=== PATIENT | male | born 1985 | race Caucasian/White ===

== ENCOUNTER 2021-08-29 00:27 | Inpatient (IN) | payer BC ==
[~2021-08-29] VITALS: Ht 182.9 cm; Wt 90.7 kg
--- NOTE | 2021-08-29 00:40 | NUR ---
BIBS. POSTERIOR HEAD LACERATION. PT WAKE UP ON THE FLOOR BLOODY DOES NOT REMEMBER FALLING ON THE FLOOR. PATIENT SUSTAINED 7.5 CM LACERATION. PLACED COMFORTABLY IN BED. VITALS CHECKED. PATIENT IS [id number].
--- NOTE | 2021-08-29 00:45 | NUR ---
SEEN BY DR ISBELL AT BEDSIDE
--- NOTE | 2021-08-29 00:57 | NUR ---
SKIN PREP DONE.
--- NOTE | 2021-08-29 01:15 | NUR ---
EMT AT BEDSIDE FOR EKG
--- NOTE | 2021-08-29 01:15 | NUR ---
XRAY AT BEDSIDE
--- NOTE | 2021-08-29 01:17 | NUR ---
BS 130
--- NOTE | 2021-08-29 01:24 | NUR ---
SUKHJINDER PAGED TO TAKE PT
--- NOTE | 2021-08-29 01:25 | NUR ---
Levar jauregui in [facility] - 08/29/21 at 0129 by ROXI PATIENT GOING TO CT
--- NOTE | 2021-08-29 01:25 | NUR ---
WITNESSED 5 SECOND SEIZURE NOTED.
--- NOTE | 2021-08-29 01:27 | NUR ---
PATIENT GOING TO CT.
--- NOTE | 2021-08-29 01:28 | NUR ---
COVID SWAB DONE AND SENT TO LAB
[2021-08-29 01:40] LABS: BASOPHILS % (AUTO) 0.3 % (0.0-2.0); EOSINOPHILS % (AUTO) 1.5 % (0.0-6.0); HEMATOCRIT 39 % (39-51); HEMOGLOBIN 13.3 g/dL (13.5-17.5); LYMPHOCYTES # (AUTO) 1.8 K/uL (0.8-4.8); LYMPHOCYTES % (AUTO) 20.3 % (20.0-44.0); MEAN CORPUSCULAR HGB CONC 34 g/dl (31.0-36.0); MEAN CORPUSCULAR VOLUME 91 fL (80-96); MONOCYTES # (AUTO) 0.8 K/uL (0.1-1.30); MONOCYTES % (AUTO) 9.1 % (2.0-12.0); NEUTROPHILS % (AUTO) 68.8 % (43.0-81.0); PLATELET COUNT (AUTO) 201 K/uL (150-450); RED BLOOD CELL COUNT(AUTO) 4.28 MIL/uL (4.5-6.0); WHITE BLOOD COUNT (AUTO) 8.6 K/uL (4.3-11.0)
[2021-08-29] MEDS ORDERED: LIDOCAINE 0.5%-EPI 1:200,000 50 ML VIAL ONE (01:56)
[2021-08-29 01:59] LABS: ALANINE AMINOTRANSFERASE 39 U/L (12-78); ALBUMIN 4.7 g/dL (3.4-5.0); ALKALINE PHOSPHATASE 69 U/L (46-116); ASPARTATE AMINOTRANSFERASE 42 U/L (15-37); BILIRUBIN,DIRECT 0.3 mg/dL (0.0-0.2); BILIRUBIN,TOTAL 1.9 mg/dL (0.2-1.0); CALCIUM, SERUM 9.1 mg/dL (8.5-10.1); CARBON DIOXIDE 27 mmol/L (21-32); CHLORIDE 102 mmol/L (98-107); CREATININE 1.3 mg/dL (0.6-1.3); GLUCOSE 118 mg/dL (74-106); POTASSIUM 2.9 mmol/L (3.5-5.1); SODIUM SERUM 139 mmol/L (136-145); TOTAL PROTEIN, SERUM 7.9 g/dL (6.4-8.2); UREA NITROGEN, BLOOD 16 mg/dL (7-18)
--- NOTE | 2021-08-29 02:00 | NUR ---
6 AUDREY APPLIED TO THE LACERATED WOUND. PRESSURE DRESSING DONE.
--- NOTE | 2021-08-29 02:26 | NUR ---
SPOKE WITH GONZALEZ, GRINDER DRESSER FOR CLINICALS. MD TO WITH DR. MCADAMS @ [phone]
[2021-08-29] MEDS ORDERED: MAGNESIUM HYDROXIDE 30 ML UDC PO PRN (03:00)
[2021-08-29] MEDS ORDERED: Z GUARD REMEDY 4 OZ OINT TP PRN (03:00)
[2021-08-29] MEDS ORDERED: POTASSIUM CHLORIDE 20 MEQ TAB.PRT.SR PO ONE ×5 (03:00→09:09)
[2021-08-29] MEDS ORDERED: MAG HYDROX/AL HYDROX/SIMETH 30 ML UDC PO PRN (03:00)
[2021-08-29] MEDS ORDERED: ACETAMINOPHEN 325 MG TABLET PO PRN (03:00)
[2021-08-29] MEDS ORDERED: POTASSIUM CHLORIDE 10 MEQ TABLET.SA ONE (06:36)
[2021-08-29 06:48] LABS: BASOPHILS % (AUTO) 0.3 % (0.0-2.0); EOSINOPHILS % (AUTO) 0.6 % (0.0-6.0); HEMATOCRIT 38 % (39-51); HEMOGLOBIN 13.1 g/dL (13.5-17.5); LYMPHOCYTES # (AUTO) 1.8 K/uL (0.8-4.8); LYMPHOCYTES % (AUTO) 21.4 % (20.0-44.0); MEAN CORPUSCULAR HGB CONC 35 g/dl (31.0-36.0); MEAN CORPUSCULAR VOLUME 92 fL (80-96); MONOCYTES # (AUTO) 0.6 K/uL (0.1-1.30); MONOCYTES % (AUTO) 6.9 % (2.0-12.0); NEUTROPHILS # (AUTO) 5.9 K/uL (1.8-8.9); NEUTROPHILS % (AUTO) 70.8 % (43.0-81.0); PLATELET COUNT (AUTO) 194 K/uL (150-450); RED BLOOD CELL COUNT(AUTO) 4.09 MIL/uL (4.5-6.0); WHITE BLOOD COUNT (AUTO) 8.3 K/uL (4.3-11.0)
[2021-08-29 07:00] LABS: ALBUMIN 4.3 g/dL (3.4-5.0); BILIRUBIN,TOTAL 1.6 mg/dL (0.2-1.0); CALCIUM, SERUM 8.9 mg/dL (8.5-10.1); CREATININE 1.1 mg/dL (0.6-1.3); MAGNESIUM 2.2 mg/dL (1.8-2.4); POTASSIUM 3.3 mmol/L (3.5-5.1); TOTAL PROTEIN, SERUM 7.3 g/dL (6.4-8.2)
--- NOTE | 2021-08-29 07:20 | NUR ---
REPORT GIVEN TO NTAHEN RUDOLPH
--- NOTE | 2021-08-29 07:20 | NUR ---
RECIVED PT FROM NII RN PT AWAKE AND FALLOW COMMNED C/O HEADEACH DUE TO DRESSING TO TITED AND VOMITING X1 REMOVE DRESSING DONE NO ACTIVE BLEEDING ON STABLE SITE BACK OF HEAD NO WEEKNESS DR. CARRERA NOTEFY ZOFRAN 4MG IVP GIVEN
[2021-08-29] MEDS ORDERED: PANTOPRAZOLE 40 MG TABLET.DR PO SCH (07:30)
[2021-08-29] MEDS ORDERED: ONDANSETRON HCL/PF 4 MG/2 ML VIAL ONE (07:39)
[2021-08-29] MEDS: IV NS 0.9% 1,000 ML IV PRN ×2 (07:45→12:06)
[2021-08-29] MEDS: ONDANSETRON HCL/PF 4 MG/2 ML VIAL IVP PRN ×2 (07:45→08:30)
--- NOTE | 2021-08-29 08:00 | NUR ---
RESTING AND ASLEEPY NOW
[2021-08-29] MEDS: POTASSIUM CHLORIDE 20 MEQ TAB.PRT.SR PO SCH ×3 (08:05→10:00)
[2021-08-29] MEDS ORDERED: PANTOPRAZOLE 40 MG TABLET.DR PO ONE (08:05)
--- NOTE | 2021-08-29 08:35 | NUR ---
NICOLETTE FOR TLEMETRY BED
[2021-08-29 08:57] LABS: THYROID STIMULATING HORMONE 0.775 uIU/mL (0.358-3.74)
--- NOTE | 2021-08-29 09:23 | NUR ---
SEEN BY DR LOCKWOOD
--- NOTE | 2021-08-29 09:41 | NUR ---
GOT BED 322-1
--- NOTE | 2021-08-29 09:58 | NUR ---
REPORT GIVEN TO MATEO SENA. AWAITING TRANSFER TO FLOOR
--- NOTE | 2021-08-29 10:15 | NUR ---
PRINTING SUPERVISOR NOTES RECEIVED PT FROM E.R. STAFF VIA BED, PT IS AWAKE, ALERT AND ORIENTED, ABLE TO AMBULATE TO BED AND TO THE BATHROOM WITH STEADY GAIT, NO SHORTNESS OF BREATH, WITH COMPLAINT OF SLIGHT PAIN AT HEAD LACERATION SITE, DRESSING DRY AND INTACT, NO BLEEDING NOTED, ROOM SET UP ORIENTATION PROVIDED TO PT, VERBALIZED UNDERSTANDING, VITAL SIGNS TAKEN AND RECORDED, IV SITE AT RIGHT A/C INTACT AND PATENT, NO S/S OF INFILTRATION, ADMITTING ORDERS RECEIVED, KEPT COMFORTABLE IN BED.
--- NOTE | 2021-08-29 10:30 | NUR ---
TRANSFERRED TO BED 322 IN STABLE CONDITION
[2021-08-29 12:00] VITALS: BP 141/102
[2021-08-29 16:00] VITALS: BP 160/108
--- NOTE | 2021-08-29 17:15 | NUR ---
CLEARING HAND NOTES PT AWAKE, ALERT AND ORIENTED, WALKING INSIDE HIS ROOM WITH STEADY GAIT, NOT IN DISTRESS, NO COMPLAINT OF PAIN, NO BLEEDING NOTED TO PARIETAL AREA LACERATION SITE, SEEN BY DR. TOVAR, DISCHARGE ORDER GIVEN, DISCHARGE AND MEDICATION INSTRUCTIONS PROVIDED TO PT, VERBALIZED UNDERSTANDING, BASIC WOUND CARE INSTRUCTIONS PROVIDED TO PT, VERBALIZED UNDERSTANDING, BELONGINGS ACCOUNTED FOR, PICKED UP BY ICER MACHINE, LEFT IN STABLE CONDITION.
== END 2021-08-29 17:10 | disposition home or self-care (01) | DRG 204 ==
LOC: ER 01:09 → TRANSITION 04:29 → TELE 09:50
PROVIDERS: ADMIT Nurse Practitioner Family; ATTEND Nurse Practitioner Family
DX: R55 Syncope and collapse (principal); E80.4 Gilbert syndrome; E87.6 Hypokalemia; S01.01XA Laceration without foreign body of scalp, initial encounter; W18.39XA Other fall on same level, initial encounter; Y93.E1 Activity, personal bathing and showering; Y92.002 Bathroom of unspecified non-institutional (private) residence as the place of occurrence of the external cause; I10 Essential (primary) hypertension; R79.89 Other specified abnormal findings of blood chemistry
CPT/HCPCS: 36415; 70450-TC; 71045-TC; 80048-TC; 80053-TC; 80061-TC; 80076-TC; 82962-TC; 83735-TC; 84443-TC; 84484-TC; 85025-TC; 85730-TC; 87081-TC; 93307-TC; 93880-TC; C9803; G0378; J2405; J3490; J7030